=== PATIENT | male | born 1945 | race Caucasian/White ===

== ENCOUNTER 2017-12-07 18:04 | Inpatient (IN) | payer OTHER, BC ==
[2017-12-07] MEDS: SOD CHLORIDE 0.9% 500 ML IV (18:26)
[2017-12-07] MEDS: METHYLPREDNISOLONE 125 MG INJ IV (18:26)
[2017-12-07] MEDS: IPRATROPIUM (NEB) 0.5 MG/2.5 ML AMP INH ×2 (18:35→21:03)
[2017-12-07] MEDS: ALBUTEROL 0.5% (NEB) 2.5 MG/0.5 ML AMP INH ×2 (18:35→21:02)
[2017-12-07 18:50] LABS: ADD MAN DIFF? NO
[2017-12-07 18:54] LABS: BASOPHIL # 0.1 10^3/ul (0.0-0.1); BASOPHILS % 0.6 % (0.0-2.0); EOSINOPHILS # 0.7 10^3/ul (0.0-0.5); EOSINOPHILS % 5.5 % (0.0-7.0); HEMATOCRIT 31.5 % (42.0-52.0); HEMOGLOBIN 9.7 g/dl (14.0-18.0); LYMPHOCYTES # 3.2 10^3/ul (0.8-2.9); LYMPHOCYTES % 26.9 % (15.0-51.0); MEAN CORPUSCULAR HEMOGLOBIN 25.9 pg (29.0-33.0); MEAN CORPUSCULAR HGB CONC 30.8 g/dl (32.0-37.0); MEAN CORPUSCULAR VOLUME 84.2 fl (82.0-101.0); MEAN PLATELET VOLUME 11.2 fl (7.4-10.4); MONOCYTE # 0.7 10^3/ul (0.3-0.9); MONOCYTES % 5.9 % (0.0-11.0); NEUTROPHIL # 7.2 10^3/ul (1.6-7.5); NEUTROPHILS % 60.7 % (39.0-77.0); PLATELET COUNT 267 10^3/UL (140-415); RED BLOOD COUNT 3.74 10^6/ul (4.70-6.10); RED CELL DISTRIBUTION WIDTH 16.7 % (11.5-14.5)
[2017-12-07 18:54] LABS: WHITE BLOOD COUNT 11.8 10^3/ul (4.8-10.8)
[2017-12-07 19:02] LABS: ADD UMIC NO; UR ASCORBIC ACID NEGATIVE (NEGATIVE); UR BILIRUBIN (Dip) NEGATIVE (NEGATIVE); UR BLOOD (Dip) NEGATIVE (NEGATIVE); UR CLARITY CLEAR (CLEAR); UR COLOR STRAW (YELLOW); UR GLUCOSE (Dip) 1+ mg/dL (NEGATIVE); UR KETONES (Dip) NEGATIVE (NEGATIVE); UR LEUKOCYTE ESTERASE (Dip) NEGATIVE Leu/ul (NEGATIVE); UR NITRITE (Dip) NEGATIVE (NEGATIVE); UR SPECIFIC GRAVITY (Dip) 1.005 (1.003-1.030); UR TOTAL PROTEIN (Dip) NEGATIVE (NEGATIVE); UR UROBILINOGEN (Dip) NEGATIVE (NEGATIVE)
[2017-12-07 19:12] LABS: AADO2 Arterial 259.3 mmHg (7.0-24.0); Allen Test ACCEPTAB; Arterial Base Excess 1.4 mmol/L (-3.0-3); Arterial Blood Gas Oxygen Sat 97.9 mmHG (95.0-100.0); Arterial COHb 1.5 % (0.0-3.0); Arterial Fraction of Oxyhgb 96.3 % (93.0-99.0); Arterial HCO3 27.1 mmol/L (22.0-26.0); Arterial MetHb 0.1 % (0.0-1.5); Arterial Total Hemglobin 10.5 g/dl (12.0-18.0); Arterial pCO2 48.2 mmhg (35-45); Blood Gas IEPAP 15/5; Blood Gas PS 10; MODE MASK - BIPAP; Site Right Radial
[2017-12-07 19:15] LABS: INR 1.12; PROTIME 14.6 Sec (11.9-14.9); PT RATIO 1.1
[2017-12-07 19:16] LABS: PARTIAL THROMBOPLASTIN TIME 34.9 Sec (25.0-35.0)
[2017-12-07 19:20] LABS: LACTIC ACID 1.4 mmol/L (0.5-2.0)
[2017-12-07 19:29] LABS: ALANINE AMINOTRANSFERASE 33 IU/L (13-69); ALBUMIN 4.3 g/dl (3.3-4.9); ALBUMIN/GLOBULIN RATIO 1.22; ALKALINE PHOSPHATASE 66 IU/L (42-121); ANION GAP 16 (8-16); ASPARTATE AMINO TRANSFERASE 29 IU/L (15-46); BILIRUBIN,INDIRECT 0.3 mg/dl (0-1.1); BILIRUBIN,TOTAL 0.3 mg/dl (0.2-1.3); BLOOD UREA NITROGEN 23 mg/dl (7-20); CALCIUM 8.6 mg/dl (8.4-10.2); CARBON DIOXIDE 29 mmol/L (21-31); CHLORIDE 103 mmol/L (97-110); CREATINE KINASE 94 IU/L (23-200); CREATININE 1.21 mg/dl (0.61-1.24); GLUCOSE 239 mg/dl (70-220); POTASSIUM 4.5 mmol/L (3.5-5.1); SODIUM 143 mmol/L (135-144); TOTAL PROTEIN 7.8 g/dl (6.1-8.1)
[2017-12-07 19:36] LABS: B-TYPE NATRIURETIC PEPTIDE 1380 PG/ML (0-125); CK INDEX 1.1
[2017-12-07 19:40] LABS: CK-MB 1.01 ng/ml (0.0-2.4); TROPONIN-I < 0.012 ng/ml (0.00-0.12)
[2017-12-07] MEDS: FUROSEMIDE 40 MG INJ IV (20:44)
[2017-12-07] MEDS ORDERED: ACETAMINOPHEN 325 MG TAB PO ×2 (21:00→21:30)
[2017-12-07] MEDS ORDERED: ONDANSETRON 4 MG INJ IV ×2 (21:00→21:30)
[2017-12-07] MEDS ORDERED: ALBUTEROL HFA 8 GM INHALER INH (21:30)
[2017-12-07] MEDS ORDERED: NACL 0.9% 3 ML SYG IV (21:30)
[2017-12-07] MEDS ORDERED: CYCLOBENZAPRINE 10 MG TAB PO (21:30)
[2017-12-07] MEDS ORDERED: GLUCOSE GEL 15 GRAM TUBE PO ×2 (22:30)
[2017-12-07] MEDS ORDERED: GLUCOSE GEL 15 GRAM TUBE BUCCAL (22:30)
[2017-12-07] MEDS ORDERED: DEXTROSE 50% 50 ML SYRINGE IV ×2 (22:30)
[2017-12-07] MEDS ORDERED: GLUCAGON 1 MG INJ IM (22:30)
[2017-12-07 22:43] LABS: CREATINE KINASE 86 IU/L (23-200)
[2017-12-07 22:57] LABS: CK-MB 0.82 ng/ml (0.0-2.4); TROPONIN-I < 0.012 ng/ml (0.00-0.12)
[2017-12-08 04:45] LABS: CREATINE KINASE 79 IU/L (23-200)
[2017-12-08 04:58] LABS: CK INDEX 1.2
[2017-12-08 05:02] LABS: CK-MB 0.91 ng/ml (0.0-2.4); TROPONIN-I < 0.012 ng/ml (0.00-0.12)
[2017-12-08] MEDS: PANTOPRAZOLE SODIUM 20 MG TABEC PO (05:58)
[2017-12-08 06:21] LABS: ADD MAN DIFF? NO
[2017-12-08 06:32] LABS: WHITE BLOOD COUNT 11.1 10^3/ul (4.8-10.8)
[2017-12-08 06:32] LABS: BASOPHILS % 0.2 % (0.0-2.0); EOSINOPHILS % 0.1 % (0.0-7.0); HEMATOCRIT 30.4 % (42.0-52.0); HEMOGLOBIN 9.2 g/dl (14.0-18.0); LYMPHOCYTES # 1.2 10^3/ul (0.8-2.9); MEAN CORPUSCULAR HEMOGLOBIN 25.8 pg (29.0-33.0); MEAN CORPUSCULAR HGB CONC 30.3 g/dl (32.0-37.0); MEAN CORPUSCULAR VOLUME 85.4 fl (82.0-101.0); MEAN PLATELET VOLUME 11.9 fl (7.4-10.4); MONOCYTE # 0.1 10^3/ul (0.3-0.9); MONOCYTES % 1.3 % (0.0-11.0); NEUTROPHIL # 9.6 10^3/ul (1.6-7.5); NEUTROPHILS % 86.2 % (39.0-77.0); PLATELET COUNT 204 10^3/UL (140-415); RED BLOOD COUNT 3.56 10^6/ul (4.70-6.10); RED CELL DISTRIBUTION WIDTH 16.5 % (11.5-14.5)
[2017-12-08 06:46] LABS: ALANINE AMINOTRANSFERASE 37 IU/L (13-69); ALBUMIN 3.9 g/dl (3.3-4.9); ALBUMIN/GLOBULIN RATIO 1.21; ALKALINE PHOSPHATASE 62 IU/L (42-121); ANION GAP 14 (8-16); ASPARTATE AMINO TRANSFERASE 26 IU/L (15-46); BILIRUBIN,INDIRECT 0.3 mg/dl (0-1.1); BILIRUBIN,TOTAL 0.3 mg/dl (0.2-1.3); BLOOD UREA NITROGEN 29 mg/dl (7-20); CALCIUM 8.8 mg/dl (8.4-10.2); CARBON DIOXIDE 28 mmol/L (21-31); CHLORIDE 105 mmol/L (97-110); CHOL/HDL RATIO 3.7 RATIO; CHOLESTEROL 116 mg/dl (100-200); GLUCOSE 351 mg/dl (70-220); HDL CHOLESTEROL 31 mg/dl (31-75); LDL CHOLESTEROL,CALCULATED 72 mg/dl; MAGNESIUM 1.7 mg/dl (1.7-2.5); POTASSIUM 5.1 mmol/L (3.5-5.1); SODIUM 142 mmol/L (135-144); TOTAL PROTEIN 7.1 g/dl (6.1-8.1); TRIGLYCERIDES 65 mg/dl (0-149)
[2017-12-08 07:13] LABS: HEMOGLOBIN A1C 8.4 % (0-5.9)
[2017-12-08 07:16] LABS: THYROID STIMULATING HORMONE 0.955 MIU/L (0.465-4.680)
[2017-12-08] MEDS: metFORMIN 500 MG TAB PO (08:00)
[2017-12-08] MEDS: ISOSORBIDE MONONITRATE(SR)30 MG TAB PO (09:00)
[2017-12-08] MEDS: CLOPIDOGREL 75 MG TAB PO (09:38)
[2017-12-08] MEDS: SERTRALINE 100 MG TAB PO (09:39)
[2017-12-08] MEDS: GABAPENTIN 300 MG CAP PO ×3 (09:40→20:48)
[2017-12-08] MEDS: RANOLAZINE (SR) 500 MG TAB PO ×2 (09:40→20:48)
[2017-12-08] MEDS: ASPIRIN (EC) 81 MG TAB PO (09:40)
[2017-12-08] MEDS: FUROSEMIDE 20 MG INJ IV (09:41)
[2017-12-08] MEDS: METHYLPREDNISOLONE 40 MG INJ IV ×2 (09:41→20:46)
[2017-12-08] MEDS: ENOXAPARIN 40 MG/0.4 ML SYG SC (09:41)
[2017-12-08] MEDS: INSULIN GLARGINE [LANtus] 3 ML PEN SC (09:50)
[2017-12-08] MEDS: INSULIN ASPART [NOVOLOG] 3 ML PEN SC ×4 (12:11→21:24)
[2017-12-08] MEDS ORDERED: ALPRAZOLAM 1 MG TAB PO (14:00)
[2017-12-08] MEDS: ATORVASTATIN 80 MG TAB PO (20:48)
[2017-12-08] MEDS: MONTELUKAST 10 MG TAB PO (20:48)
[2017-12-08] MEDS: ALBUTEROL/IPRATROPIUM (NEB) 3 ML AMP HHN (20:59)
[2017-12-08] MEDS: GUAIFENESIN/DM 5ML CUP PO (22:17)
[2017-12-09] MEDS: ACCU-CHEK XX (01:54)
[2017-12-09] MEDS: INSULIN ASPART [NOVOLOG] 3 ML PEN SC ×8 (02:03→20:24)
[2017-12-09] MEDS: ALBUTEROL/IPRATROPIUM (NEB) 3 ML AMP HHN ×3 (02:28→13:08)
[2017-12-09] MEDS: PANTOPRAZOLE SODIUM 20 MG TABEC PO (06:26)
[2017-12-09] MEDS: RANOLAZINE (SR) 500 MG TAB PO ×2 (08:51→20:16)
[2017-12-09] MEDS: CLOPIDOGREL 75 MG TAB PO (08:51)
[2017-12-09] MEDS: ISOSORBIDE MONONITRATE(SR)30 MG TAB PO (08:51)
[2017-12-09] MEDS: ASPIRIN (EC) 81 MG TAB PO (08:51)
[2017-12-09] MEDS: GABAPENTIN 300 MG CAP PO ×3 (08:52→20:16)
[2017-12-09] MEDS: SERTRALINE 100 MG TAB PO (08:52)
[2017-12-09] MEDS: METHYLPREDNISOLONE 40 MG INJ IV (08:52)
[2017-12-09] MEDS: FUROSEMIDE 20 MG INJ IV (08:52)
[2017-12-09] MEDS: INSULIN GLARGINE [LANtus] 3 ML PEN SC (09:02)
[2017-12-09] MEDS: LEVOFLOXACIN 750MG/D5W (PMX) 150 ML IVPB (11:11)
[2017-12-09] MEDS: ATORVASTATIN 80 MG TAB PO (20:16)
[2017-12-09] MEDS: MONTELUKAST 10 MG TAB PO (20:16)
[2017-12-09] MEDS: ALBUTEROL 0.083% (NEB) 2.5 MG/3 ML AMP HHN (20:33)
[2017-12-10] MEDS: ACCU-CHEK XX (01:26)
[2017-12-10] MEDS: PANTOPRAZOLE SODIUM 20 MG TABEC PO (05:16)
[2017-12-10 07:59] LABS: ADD MAN DIFF? NO
[2017-12-10 08:02] LABS: WHITE BLOOD COUNT 15.2 10^3/ul (4.8-10.8)
[2017-12-10 08:02] LABS: BASOPHILS % 0.1 % (0.0-2.0); EOSINOPHILS # 0.2 10^3/ul (0.0-0.5); HEMATOCRIT 32.1 % (42.0-52.0); HEMOGLOBIN 9.8 g/dl (14.0-18.0); LYMPHOCYTES # 3.6 10^3/ul (0.8-2.9); LYMPHOCYTES % 23.6 % (15.0-51.0); MEAN CORPUSCULAR HEMOGLOBIN 25.9 pg (29.0-33.0); MEAN CORPUSCULAR HGB CONC 30.5 g/dl (32.0-37.0); MEAN CORPUSCULAR VOLUME 84.9 fl (82.0-101.0); MEAN PLATELET VOLUME 11.1 fl (7.4-10.4); MONOCYTE # 1.1 10^3/ul (0.3-0.9); MONOCYTES % 7.1 % (0.0-11.0); NEUTROPHIL # 10.3 10^3/ul (1.6-7.5); NEUTROPHILS % 67.7 % (39.0-77.0); PLATELET COUNT 263 10^3/UL (140-415); RED BLOOD COUNT 3.78 10^6/ul (4.70-6.10)
[2017-12-10] MEDS: RANOLAZINE (SR) 500 MG TAB PO ×2 (08:23→21:37)
[2017-12-10] MEDS: ISOSORBIDE MONONITRATE(SR)30 MG TAB PO (08:23)
[2017-12-10] MEDS: GABAPENTIN 300 MG CAP PO ×3 (08:23→21:37)
[2017-12-10] MEDS: SERTRALINE 100 MG TAB PO (08:23)
[2017-12-10] MEDS: ASPIRIN (EC) 81 MG TAB PO (08:24)
[2017-12-10] MEDS: METHYLPREDNISOLONE 40 MG INJ IV (08:24)
[2017-12-10] MEDS: CLOPIDOGREL 75 MG TAB PO (08:24)
[2017-12-10] MEDS: FUROSEMIDE 20 MG INJ IV (08:25)
[2017-12-10 08:26] LABS: CREATINE KINASE 49 IU/L (23-200)
[2017-12-10] MEDS: LEVOFLOXACIN 750MG/D5W (PMX) 150 ML IVPB (08:27)
[2017-12-10 08:32] LABS: ANION GAP 15 (8-16); BLOOD UREA NITROGEN 38 mg/dl (7-20); CALCIUM 9.4 mg/dl (8.4-10.2); CARBON DIOXIDE 33 mmol/L (21-31); CHLORIDE 100 mmol/L (97-110); CREATININE 1.33 mg/dl (0.61-1.24); GLUCOSE 206 mg/dl (70-220); MAGNESIUM 1.8 mg/dl (1.7-2.5); PHOSPHORUS 3.9 mg/dl (2.5-4.9); SODIUM 143 mmol/L (135-144)
[2017-12-10 08:34] LABS: ALANINE AMINOTRANSFERASE 84 IU/L (13-69); ALBUMIN 3.9 g/dl (3.3-4.9); ALKALINE PHOSPHATASE 57 IU/L (42-121); ANION GAP 17 (8-16); ASPARTATE AMINO TRANSFERASE 50 IU/L (15-46); BILIRUBIN,INDIRECT 0.4 mg/dl (0-1.1); BILIRUBIN,TOTAL 0.4 mg/dl (0.2-1.3); BLOOD UREA NITROGEN 38 mg/dl (7-20); CALCIUM 9.6 mg/dl (8.4-10.2); CARBON DIOXIDE 32 mmol/L (21-31); CHLORIDE 99 mmol/L (97-110); CREATININE 1.31 mg/dl (0.61-1.24); GLUCOSE 202 mg/dl (70-220); POTASSIUM 5.2 mmol/L (3.5-5.1); SODIUM 143 mmol/L (135-144); TOTAL PROTEIN 6.9 g/dl (6.1-8.1)
[2017-12-10 08:38] LABS: B-TYPE NATRIURETIC PEPTIDE 2690 PG/ML (0-125)
[2017-12-10 08:40] LABS: CK INDEX 2.1
[2017-12-10] MEDS: INSULIN ASPART [NOVOLOG] 3 ML PEN SC ×7 (08:40→21:56)
[2017-12-10] MEDS: INSULIN GLARGINE [LANtus] 3 ML PEN SC (08:40)
[2017-12-10 08:42] LABS: CK-MB 1.04 ng/ml (0.0-2.4); TROPONIN-I < 0.012 ng/ml (0.00-0.12)
[2017-12-10] MEDS: GUAIFENESIN/DM 5ML CUP PO (10:39)
[2017-12-10] MEDS: FUROSEMIDE 40 MG INJ IV (14:56)
[2017-12-10] MEDS: MONTELUKAST 10 MG TAB PO (21:37)
[2017-12-10] MEDS: ATORVASTATIN 80 MG TAB PO (21:37)
[2017-12-11] MEDS: ACCU-CHEK XX (02:47)
[2017-12-11] MEDS: PANTOPRAZOLE SODIUM 20 MG TABEC PO (06:25)
[2017-12-11] MEDS: SERTRALINE 100 MG TAB PO (08:16)
[2017-12-11] MEDS: CLOPIDOGREL 75 MG TAB PO (08:25)
[2017-12-11] MEDS: ISOSORBIDE MONONITRATE(SR)30 MG TAB PO (08:25)
[2017-12-11] MEDS: ASPIRIN (EC) 81 MG TAB PO (08:25)
[2017-12-11] MEDS: GABAPENTIN 300 MG CAP PO ×3 (08:25→20:43)
[2017-12-11] MEDS: RANOLAZINE (SR) 500 MG TAB PO ×2 (08:25→20:43)
[2017-12-11] MEDS: LEVOFLOXACIN 750MG/D5W (PMX) 150 ML IVPB (08:26)
[2017-12-11] MEDS: METHYLPREDNISOLONE 40 MG INJ IV (08:27)
[2017-12-11] MEDS: FUROSEMIDE 20 MG INJ IV (08:28)
[2017-12-11] MEDS: INSULIN GLARGINE [LANtus] 3 ML PEN SC (08:42)
[2017-12-11] MEDS: INSULIN ASPART [NOVOLOG] 3 ML PEN SC ×7 (08:42→21:24)
[2017-12-11 08:56] LABS: ADD MAN DIFF? NO
[2017-12-11 08:59] LABS: WHITE BLOOD COUNT 17.1 10^3/ul (4.8-10.8)
[2017-12-11 08:59] LABS: BASOPHILS % 0.1 % (0.0-2.0); EOSINOPHILS # 0.1 10^3/ul (0.0-0.5); EOSINOPHILS % 0.5 % (0.0-7.0); HEMATOCRIT 33.6 % (42.0-52.0); HEMOGLOBIN 10.4 g/dl (14.0-18.0); LYMPHOCYTES # 3.9 10^3/ul (0.8-2.9); LYMPHOCYTES % 22.7 % (15.0-51.0); MEAN PLATELET VOLUME 10.8 fl (7.4-10.4); MONOCYTE # 1.3 10^3/ul (0.3-0.9); MONOCYTES % 7.6 % (0.0-11.0); NEUTROPHIL # 11.7 10^3/ul (1.6-7.5); NEUTROPHILS % 68.5 % (39.0-77.0); PLATELET COUNT 298 10^3/UL (140-415); RED CELL DISTRIBUTION WIDTH 16.8 % (11.5-14.5)
[2017-12-11 09:42] LABS: ALBUMIN 3.9 g/dl (3.3-4.9); ANION GAP 15 (8-16); BLOOD UREA NITROGEN 43 mg/dl (7-20); CALCIUM 9.8 mg/dl (8.4-10.2); CARBON DIOXIDE 37 mmol/L (21-31); CHLORIDE 96 mmol/L (97-110); CREATININE 1.19 mg/dl (0.61-1.24); GLUCOSE 173 mg/dl (70-220); MAGNESIUM 1.8 mg/dl (1.7-2.5); PHOSPHORUS 4.4 mg/dl (2.5-4.9); POTASSIUM 4.9 mmol/L (3.5-5.1); SODIUM 143 mmol/L (135-144)
[2017-12-11 09:43] LABS: ALANINE AMINOTRANSFERASE 71 IU/L (13-69); ALBUMIN/GLOBULIN RATIO 1.25; ALKALINE PHOSPHATASE 59 IU/L (42-121); ANION GAP 16 (8-16); ASPARTATE AMINO TRANSFERASE 37 IU/L (15-46); BILIRUBIN,INDIRECT 0.3 mg/dl (0-1.1); BILIRUBIN,TOTAL 0.3 mg/dl (0.2-1.3); BLOOD UREA NITROGEN 42 mg/dl (7-20); CALCIUM 9.8 mg/dl (8.4-10.2); CARBON DIOXIDE 38 mmol/L (21-31); CHLORIDE 96 mmol/L (97-110); GLUCOSE 182 mg/dl (70-220); POTASSIUM 4.6 mmol/L (3.5-5.1); SODIUM 145 mmol/L (135-144); TOTAL PROTEIN 7.2 g/dl (6.1-8.1)
[2017-12-11 09:47] LABS: B-TYPE NATRIURETIC PEPTIDE 2660 PG/ML (0-125)
[2017-12-11] MEDS: LOSARTAN 25 MG TAB PO (09:57)
[2017-12-11] MEDS: GUAIFENESIN LA 600 MG TABSR PO ×2 (09:57→20:43)
[2017-12-11] MEDS: ATORVASTATIN 80 MG TAB PO (20:43)
[2017-12-11] MEDS: MONTELUKAST 10 MG TAB PO (20:44)
[2017-12-12] MEDS: ACCU-CHEK XX (02:00)
[2017-12-12] MEDS: PANTOPRAZOLE SODIUM 20 MG TABEC PO (05:18)
[2017-12-12 06:17] LABS: ADD MAN DIFF? NO
[2017-12-12 06:23] LABS: WHITE BLOOD COUNT 17.8 10^3/ul (4.8-10.8)
[2017-12-12 06:23] LABS: BASOPHILS % 0.1 % (0.0-2.0); EOSINOPHILS # 0.1 10^3/ul (0.0-0.5); EOSINOPHILS % 0.6 % (0.0-7.0); HEMATOCRIT 32.6 % (42.0-52.0); HEMOGLOBIN 10.8 g/dl (14.0-18.0); LYMPHOCYTES # 4.6 10^3/ul (0.8-2.9); LYMPHOCYTES % 25.7 % (15.0-51.0); MEAN CORPUSCULAR HEMOGLOBIN 27.1 pg (29.0-33.0); MEAN CORPUSCULAR HGB CONC 33.1 g/dl (32.0-37.0); MEAN CORPUSCULAR VOLUME 81.9 fl (82.0-101.0); MEAN PLATELET VOLUME 11.1 fl (7.4-10.4); MONOCYTE # 1.4 10^3/ul (0.3-0.9); MONOCYTES % 7.8 % (0.0-11.0); NEUTROPHIL # 11.6 10^3/ul (1.6-7.5); PLATELET COUNT 268 10^3/UL (140-415); RED BLOOD COUNT 3.98 10^6/ul (4.70-6.10); RED CELL DISTRIBUTION WIDTH 16.6 % (11.5-14.5)
[2017-12-12 06:43] LABS: ALANINE AMINOTRANSFERASE 67 IU/L (13-69); ALBUMIN 3.6 g/dl (3.3-4.9); ALBUMIN/GLOBULIN RATIO 1.12; ALKALINE PHOSPHATASE 56 IU/L (42-121); ANION GAP 14 (8-16); ASPARTATE AMINO TRANSFERASE 28 IU/L (15-46); BILIRUBIN,INDIRECT 0.2 mg/dl (0-1.1); BILIRUBIN,TOTAL 0.2 mg/dl (0.2-1.3); BLOOD UREA NITROGEN 41 mg/dl (7-20); CALCIUM 9.5 mg/dl (8.4-10.2); CARBON DIOXIDE 38 mmol/L (21-31); CHLORIDE 94 mmol/L (97-110); CREATININE 1.19 mg/dl (0.61-1.24); GLUCOSE 296 mg/dl (70-220); POTASSIUM 4.6 mmol/L (3.5-5.1); SODIUM 141 mmol/L (135-144); TOTAL PROTEIN 6.8 g/dl (6.1-8.1)
[2017-12-12 06:51] LABS: ALBUMIN 3.7 g/dl (3.3-4.9); ANION GAP 16 (8-16); B-TYPE NATRIURETIC PEPTIDE 1870 PG/ML (0-125); BLOOD UREA NITROGEN 42 mg/dl (7-20); CALCIUM 9.2 mg/dl (8.4-10.2); CARBON DIOXIDE 34 mmol/L (21-31); CHLORIDE 93 mmol/L (97-110); CREATININE 1.08 mg/dl (0.61-1.24); GLUCOSE 291 mg/dl (70-220); MAGNESIUM 1.8 mg/dl (1.7-2.5); PHOSPHORUS 4.7 mg/dl (2.5-4.9); POTASSIUM 4.5 mmol/L (3.5-5.1); SODIUM 138 mmol/L (135-144)
[2017-12-12] MEDS: METHYLPREDNISOLONE 40 MG INJ IV (09:34)
[2017-12-12] MEDS: ASPIRIN (EC) 81 MG TAB PO (09:35)
[2017-12-12] MEDS: CLOPIDOGREL 75 MG TAB PO (09:35)
[2017-12-12] MEDS: GABAPENTIN 300 MG CAP PO ×3 (09:35→20:33)
[2017-12-12] MEDS: SERTRALINE 100 MG TAB PO (09:35)
[2017-12-12] MEDS: LOSARTAN 25 MG TAB PO (09:37)
[2017-12-12] MEDS: FUROSEMIDE 20 MG INJ IV (09:37)
[2017-12-12] MEDS: INSULIN GLARGINE [LANtus] 3 ML PEN SC (09:39)
[2017-12-12] MEDS: INSULIN ASPART [NOVOLOG] 3 ML PEN SC ×8 (09:45→21:04)
[2017-12-12] MEDS: GUAIFENESIN LA 600 MG TABSR PO ×2 (11:15→21:00)
[2017-12-12] MEDS: RANOLAZINE (SR) 500 MG TAB PO ×2 (11:15→21:29)
[2017-12-12] MEDS: LEVOFLOXACIN 750MG/D5W (PMX) 150 ML IVPB (11:15)
[2017-12-12] MEDS: ISOSORBIDE MONONITRATE(SR)30 MG TAB PO (12:50)
[2017-12-12] MEDS: FUROSEMIDE 40 MG INJ IV (16:31)
[2017-12-12] MEDS: MONTELUKAST 10 MG TAB PO (20:33)
[2017-12-12] MEDS: ATORVASTATIN 80 MG TAB PO (20:33)
[2017-12-13] MEDS: INSULIN ASPART [NOVOLOG] 3 ML PEN SC ×5 (01:45→11:40)
[2017-12-13] MEDS: PANTOPRAZOLE SODIUM 20 MG TABEC PO (05:59)
[2017-12-13] MEDS: LEVOFLOXACIN 750 MG TABLET PO (05:59)
[2017-12-13] MEDS: FUROSEMIDE 40 MG TAB PO (06:02)
[2017-12-13] MEDS: CLOPIDOGREL 75 MG TAB PO (09:00)
[2017-12-13] MEDS: LOSARTAN 25 MG TAB PO (09:00)
[2017-12-13] MEDS: ASPIRIN (EC) 81 MG TAB PO (09:00)
[2017-12-13] MEDS: ISOSORBIDE MONONITRATE(SR)30 MG TAB PO (09:00)
[2017-12-13] MEDS: SERTRALINE 100 MG TAB PO (09:00)
[2017-12-13] MEDS: predniSONE 10 MG TAB PO (09:00)
[2017-12-13] MEDS: GABAPENTIN 300 MG CAP PO (09:01)
[2017-12-13] MEDS: GUAIFENESIN LA 600 MG TABSR PO (09:03)
[2017-12-13] MEDS: RANOLAZINE (SR) 500 MG TAB PO (09:03)
[2017-12-13] MEDS: INSULIN GLARGINE [LANtus] 3 ML PEN SC (09:07)
== END 2017-12-13 12:45 | disposition home or self-care (01) | DRG 292 ==
LOC: MS1 12-12 08:20 → TEL 20:36 → E/R 18:04
DX: I50.23 Acute on chronic systolic (congestive) heart failure (principal); J44.1 Chronic obstructive pulmonary disease with (acute) exacerbation; Z68.41 Body mass index [BMI] 40.0-44.9, adult; Z72.0 Tobacco use; I25.5 Ischemic cardiomyopathy; E66.01 Morbid (severe) obesity due to excess calories; E11.9 Type 2 diabetes mellitus without complications; Z79.4 Long term (current) use of insulin; Z95.5 Presence of coronary angioplasty implant and graft; Z95.1 Presence of aortocoronary bypass graft; F17.210 Nicotine dependence, cigarettes, uncomplicated; E78.5 Hyperlipidemia, unspecified; I27.20 Pulmonary hypertension, unspecified; I25.2 Old myocardial infarction; R06.03 Acute respiratory distress
CPT/HCPCS: 36415; 36600; 71045; 80053; 80061; 80069; 81003; 82550; 82553; 82803; 82962; 83036; 83605; 83735; 83880; 84443; 84484; 85025; 85610; 85730; 87040; 93005; 93306; 94640; 94644; 94645; 94660; 94664; 96372; 96374; 96375; 96376; 99291-25